=== PATIENT | male | born 1965 | race Caucasian/White ===

== ENCOUNTER 2017-05-06 20:04 | Outpatient (CLI) | payer OTHER | END 2017-05-06 20:05 | disposition EMS.NT | LOC: EMS 20:04 | PROVIDERS: ATTEND Surgery | DX: R55 Syncope and collapse (principal) ==

== ENCOUNTER 2017-05-06 21:17 | Emergency (ER) | payer OTHER ==
--- NOTE | 2017-05-06 21:36 | ED Physician Documentation ---
PD HPI SYNCOPE - Stated complaint Stated Complaint: DIZZY/PASSED OUT - Chief complaint Chief Complaint: Cardiac - History obtained from History obtained from: Patient, Family - History of Present Illness Witnessed: Witnessed Timing - onset: Today Preceding symptoms: Light headed. 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 patient and report that he was at a friends house for dinner. He had a few large beers and a steak, and started to feel a little light headed and hot so he went outside to cool off. Patient came back in and still felt like he was going to pass out so he laid down. friends checked the blood pressure which was found to be low. ems was called. patient was found to have a blood sugar of 67. patient was treated with dextrose. patient's brought him to the emergency department. Upon initial evaluation in the emergency department patient was well appearing and in no distress. Patient denies any family history of early cardiac disease, or blood clots. Review of Systems Constitutional: denies: Fever, Chills Eyes: denies: Loss of vision, Photophobia Ears: denies: Ear pain, Drainage/discharge Nose: denies: Rhinorrhea / runny nose, Congestion Throat: reports: Reviewed and negative Cardiac: denies: Chest pain / pressure, Palpitations, Calf pain GI: reports: Nausea. denies: Abdominal Pain, Vomiting : reports: Reviewed and negative Skin: denies: Rash, Lesions Musculoskeletal: denies: Neck pain, Back pain, Extremity pain Neurologic: reports: Near syncope. denies: Generalized weakness, Focal weakness , Syncope, Headache, Head injury, LOC Immunocompromised: denies: Immunocompromised PD PAST MEDICAL HISTORY - Past Medical History Cardiovascular: None Respiratory: None, Sleep apnea, CPAP use Neuro: None Endocrine/Autoimmune: None Psych: None Musculoskeletal: None - Past Surgical History Past Surgical History: No - Present Medications Home Medications: Ambulatory Orders Medication Instructions Recorded Confirmed No Known Home Medications [No 05/06/17 05/06/17 Known Home Medications] - Allergies Allergies/Adverse Reactions: Allergies Allergy/AdvReac Type Severity Reaction Status Date / Time No Known Drug Allergies Allergy Verified 05/06/17 21:23 - Social History Does the pt smoke?: No Smoking Status: Never smoker Does the pt drink ETOH?: Yes Substance Use and Type: Marijuana PD ED PE NORMAL - General General: Alert and oriented X 3, No acute distress - HEENT HEENT: Atraumatic, PERRL - Neck Neck: Supple, no meningeal sign, No JVD - Cardiac Cardiac: RRR, No murmur - Respiratory Respiratory: No respiratory distress - Abdomen Abdomen: Soft, Non tender, Non distended - Derm Derm: Normal color, Warm and dry, No rash - Extremities Extremities: No deformity, Normal ROM s pain, No edema - Neuro Neuro: Alert and oriented X 3, provider relations specialist 2-12 intact, No motor deficit, No sensory deficit, Normal speech Eye Opening: Spontaneous Motor: Obeys Commands Verbal: Oriented GCS Score: 15 Results - Vitals Vitals: Vital Signs - 24 hr 05/06/17 05/06/17 05/06/17 21:19 21:32 22:32 Temperature 36.7 C Heart Rate 85 84 78 Respiratory 18 16 18 Rate Blood Pressure 152/84 H 142/88 H 110/67 O2 Saturation 96 98 96 Oxygen O2 Source Room air - EKG (time done) 2126 Rate: Rate (enter#) (84) Rhythm: NSR [place]: Normal Intervals: Normal [place] Ischemia: Non specific changes Compare to prior EKG: Old EKG unavailable - Labs Labs: Laboratory Tests 05/06/17 05/06/17 05/06/17 21:23 21:41 21:41 WBC 10.4 RBC 4.71 Hgb 13.9 L Hct 41.1 L MCV 87.2 MCH 29.6 MCHC 33.9 RDW 12.3 Plt Count 211 MPV 7.7 Neut # 8.2 H Lymph # 1.2 L [place] # 0.9 Eos # 0.0 Baso # 0.0 Absolute Nucleated RBC 0.01 Nucleated RBC % 0.0 Sodium 139 Potassium 3.7 Chloride 98 L Carbon Dioxide 26 Anion Gap 15.0 H BUN 18 Creatinine 1.0 Estimated GFR (MDRD) 78 L Glucose 101 H POC Whole Bld Glucose 104 H Calcium 9.3 Total Bilirubin 0.9 AST 22 ALT 23 Alkaline Phosphatase 57 Troponin I B-Natriuretic Peptide Total Protein 7.3 Albumin 4.4 Globulin 2.9 Albumin/Globulin Ratio 1.5 Lipase 25 05/06/17 05/06/17 21:41 21:41 WBC RBC Hgb Hct MCV MCH MCHC RDW Plt Count MPV Neut # Lymph # [place] # Eos # Baso # Absolute Nucleated RBC Nucleated RBC % Sodium Potassium Chloride Carbon Dioxide Anion Gap BUN Creatinine Estimated GFR (MDRD) Glucose POC Whole Bld Glucose Calcium Total Bilirubin AST ALT Alkaline Phosphatase Troponin I < 0.04 B-Natriuretic Peptide 95 Total Protein Albumin Globulin Albumin/Globulin Ratio Lipase PD MEDICAL DECISION MAKING - ED course Complexity details: reviewed old records, reviewed results, re-evaluated patient , considered differential, d/w patient, d/w family ED course: Patient was seen and examined at bedside. patient's fingerstick was 104. Patient was asymptomatic. iv access was gained and labs were drawn. ekg was performed and showed normal sinus. patient was treated with a fluid bolus. Patient's diagnostics were within normal limits and sheppard lia syncope score of 0. Patient required no further inpatient work up and was stable for discharge with outpatient follow up. Departure - Departure Disposition: 01 Home, Self Care Clinical Impression: Vasovagal near syncope Condition: Good Instructions: ED Near Syncope Vasovagal Follow-Up: primary,care provider [Other] - As Needed Comments: Your diagnostics today were within normal limits. Your symptoms were likely secondary to a drop in blood pressure but there doesn't seem to be underlying cardiac disorder. You should follow up with your pmd and possibly can an echocardiogram if these symptoms return. You may return to the emergency department at any time for new, worsening or uncontrollable symptoms.
[2017-05-06] MEDS ORDERED: SODIUM CHLORIDE 0.9% 1,000 ML IV ONE (21:37)
[2017-05-06 21:55] LABS: BASOPHILS % (AUTO) 0.3 %; EOSINOPHILS % (AUTO) 0.3 %; HGB - HEMOGLOBIN 13.9 g/dL (14.0-18.0); LYMPHOCYTES # (AUTO) 1.2 10^3/uL (1.5-3.5); LYMPHOCYTES % (AUTO) 11.4 %; MEAN CORPUSCULAR HEMOGLOBIN 29.6 pg (27.0-31.0); MEAN CORPUSCULAR HGB CONC 33.9 g/dL (32.0-36.0); MEAN CORPUSCULAR VOLUME 87.2 fL (80.0-94.0); MEAN PLATELET VOLUME 7.7 fL (7.4-11.4); MONOCYTES # (AUTO) 0.9 10^3/uL (0.0-1.0); MONOCYTES % (AUTO) 8.7 %; NEUTROPHILS # (AUTO) 8.2 10^3/uL (1.5-6.6); NEUTROPHILS % (AUTO) 79.3 %; PLT - PLATELET COUNT 211 10^3/uL (130-450); RED BLOOD COUNT 4.71 10^6/uL (4.70-6.10); RED CELL DISTRIBUTION WIDTH 12.3 % (12.0-15.0); WHITE BLOOD COUNT 10.4 x10^3/uL (4.8-10.8)
[2017-05-06 22:07] LABS: ALBUMIN 4.4 g/dL (3.2-5.5); ALBUMIN/GLOBULIN RATIO 1.5 (1.0-2.2); BILIRUBIN,TOTAL 0.9 mg/dL (0.2-1.0); CALCIUM 9.3 mg/dL (8.5-10.3); TOTAL PROTEIN 7.3 g/dL (6.7-8.2)
[2017-05-06 22:33] VITALS: BP 110/67
== END 2017-05-06 23:03 | disposition home or self-care (01) ==
LOC: ED 21:17
DX: R55 Syncope and collapse (principal); G47.30 Sleep apnea, unspecified
CPT/HCPCS: 36415; 80053; 83690; 83880; 84484; 85025; 93005; 96360; 99284

== ENCOUNTER 2017-07-31 10:55 | Outpatient (CLI) | payer OTHER | END 2017-07-31 10:56 | disposition home or self-care (01) | LOC: SC 10:55 | PROVIDERS: ATTEND Internal Medicine Pulmonary Disease | DX: G47.33 Obstructive sleep apnea (adult) (pediatric) (principal) | CPT/HCPCS: 99203; 99212 ==

== ENCOUNTER 2017-09-19 19:29 | Outpatient (CLI) | payer OTHER | END 2017-09-19 19:30 | disposition home or self-care (01) | LOC: SC 19:29 | PROVIDERS: ATTEND Internal Medicine Pulmonary Disease | DX: G47.33 Obstructive sleep apnea (adult) (pediatric) (principal); G47.61 Periodic limb movement disorder | CPT/HCPCS: 95810 ==

== ENCOUNTER 2017-10-18 10:13 | Outpatient (CLI) | payer OTHER | END 2017-10-18 10:14 | disposition home or self-care (01) | LOC: SC 10:13 | PROVIDERS: ATTEND Nurse Practitioner Family | DX: G47.33 Obstructive sleep apnea (adult) (pediatric) (principal) | CPT/HCPCS: 99212; 99214 ==

== ENCOUNTER 2018-01-16 15:13 | Outpatient (CLI) | payer OTHER | END 2018-01-16 15:14 | disposition home or self-care (01) | LOC: SC 15:13 | PROVIDERS: ATTEND Nurse Practitioner Family | DX: G47.33 Obstructive sleep apnea (adult) (pediatric) (principal) | CPT/HCPCS: 99212; 99214 ==

== ENCOUNTER 2018-04-17 08:43 | Outpatient (CLI) | payer OTHER | END 2018-04-17 08:44 | disposition home or self-care (01) | LOC: SC 08:43 | PROVIDERS: ATTEND Nurse Practitioner Family | DX: G47.33 Obstructive sleep apnea (adult) (pediatric) (principal); R03.0 Elevated blood-pressure reading, without diagnosis of hypertension | CPT/HCPCS: 99212; 99214 ==

== ENCOUNTER 2018-10-31 09:11 | Outpatient (CLI) | payer OTHER ==
[2018-10-31 10:34] VITALS: BP 144/84
--- NOTE | 2018-10-31 10:34 | SLEEP CARE CONSULTATION ---
Information from patient questionnaire entered by Deirdre Gross. I have reviewed and concur with the information entered by Deirdre Gross. This document represents the service I personally performed and the decisions made by me, Camelia Duarte, RN, MSN, MANAGER OF REGULATORY AFFAIRS. History of Present Illness Previous diagnosis: Mild (He would like to change to a new company that he can order supplies online. ) AHI: 12 Reason for CPAP/BiPAP follow up: six month Equipment type: CPAP Equipment obtained from: [employer] Mask style: Nasal pillows (he does not like the inability to adjust as wears down) Mask brand: Resmed Backup mask available: Yes Last cushion change: 1 year ago as supply ordering system not user friendly for working people. CPAP Compliance Data - Data Reviewed with Patient Average duration of nightly device use: 5.85 Compliance rate %: 66.7 (180 days ) Current pressure setting (cmH2O): 7-12 Humidity settin Heated hose settin Average residual AHI: 1.2 Average large leak: 31 seconds Subjective Missed days of use due to: reports: travel (He travels for work and CPAP size not convenient. He has tried making unit smaller by removing humidifier but dryness symptoms are uncomfortable even with saline nasal spray prep. ) Patient concerns: denies: aerophagia, mask discomfort, air blowing in eyes, mask leak noise, condensation in mask/hose, nasal congestion, dry mouth, nose, throat, epistaxis Observed to snore while using device: No Current pressure setting perceived as: comfortable On therapy, patient: reports: sleeping better, awakening more refreshed, being more awake and alert during the day, more rested overall. denies: drowsiness while driving Initial Agness Sleepiness Scale score: 6 Current Agness Sleepiness Scale score: 1 Allergies and Home Medications Known drug allergies: No Home medication list reviewed: Yes Allergy and home medication list: Amlodipine Besylate 2.5mg tab one daily ATorvastatin unknown daily Review of Systems Review of systems same as previous: No Cardiovascular: reports: high blood pressure Ear/Nose/Throat: reports: dry mouth/throat Musculoskeletal: reports: back pain (occasional if overworks), muscle pain or cramping Physical Exam Blood Pressure: 144/84 Cuff size: regular Heart Rate: 71 O2 Saturation: 97 Height: 5 ft 9.75 in Weight (kg): 91.716 kg Body Mass Index: 29.2 BMI Classification: Overweight Impression and Plan 1. Obstructive Sleep Apnea-Hypopnea Syndrome, mild, with fair treatment compliance and good apnea control. On CPAP therapy, there is improved sleep quality and continues to feel more rested overall. For his supplies concerns, I advised him that he can transfer when CPAP paid for. In addition, he needs to bring up his compliance to a minimum of 70%. His compliance fell due not using with travel to bulk of home CPAP in carry on and he is not comfortable using the CPAP without the reservoir. Thus I discussed the option of purchasing a travel CPAP that has download capacity or take his home CPAP in travel and consider other options of baggage carryon for convenience. He was also advised to research which travel PAPS have an inline humidifier adaptor for oral dryness comfort. The travel PAP also requires a prescription if he chooses to pursue and he can contact me. Patient Patient's apnea severity and rationale for treatment to reduce apnea, improve sleep quality and reduce cardiovascular and cerebro vascular events was reviewed. I also reviewed the benefit of consistent device use of CPAP for hypertension and he is to advised to use CPAP with all sleep for maximum benefit of treatment. Since his apnea is primarily in supine position, he is advised to avoid supine sleep with pillow positioning when unable to use CPAP. . Continue auto CPAP pressure at 7-12 cm H2O. Research travel CPAPs Improve compliance for transfer option. Notify me if snoring with the mask or feeling that the pressure is too much or too little. Attempt to lose weight Return for follow-up in 2 months, or sooner if concerns arise. I spent 100% of this 35 minute visit face to face with the patient with greater than 50% of this was spent time counseling the patient and coordination of care. I spent 100% of this [] minute visit face to face with the patient with greater than 50% of this was spent time counseling the patient and coordination of care.
== END 2018-10-31 09:12 | disposition home or self-care (01) ==
LOC: SC 09:11
PROVIDERS: ATTEND Nurse Practitioner Family
DX: G47.33 Obstructive sleep apnea (adult) (pediatric) (principal)
CPT/HCPCS: 99212; 99214

== ENCOUNTER 2020-11-05 15:53 | Emergency (ER) | payer OTHER ==
[2020-11-05 16:23] VITALS: BP 140/97
[2020-11-05] MEDS ORDERED: BUFFERED LIDOCAINE 10 ML SYRINGE SUBQ STA (16:28)
[2020-11-05] MEDS ORDERED: TETANUS/DIPHTHERIA/PERTUSSIS 0.5 ML SYRINGE IM ONE (16:28)
--- NOTE | 2020-11-05 17:50 | ED Physician Documentation ---
PD HPI UPPER EXT INJURY - Stated complaint Stated Complaint: BILAT HAND LACS - Chief complaint Chief Complaint: Laceration - History obtained from History obtained from: Patient - History of Present Illness Location: Both, Finger (little fingers both sides with injuries. right with small 1/2 cm partial thickness avulsion. LEft with flap lac that goes full thickness skin in its center, so viable, without FB. Active bleeding noted.) Type of injury: Laceration (he tried to catch falling jar and it broke in his hands, causing lacs to little fingers.) Where injury occurred: Home Timing - onset: Today Timing - details: Abrupt onset, Still present Worsened by: Palpating Associated symptoms: No: Weakness, Numbness Similar symptoms before: Has not had sx before Review of Systems Constitutional: denies: Fever, Chills Nose: denies: Rhinorrhea / runny nose, Congestion Throat: denies: Sore throat Respiratory: denies: Cough Skin: reports: Laceration (s) Neurologic: denies: Focal weakness, Numbness PD PAST MEDICAL HISTORY - Past Medical History Cardiovascular: None Respiratory: None, Sleep apnea, CPAP use Endocrine/Autoimmune: None Psych: None Musculoskeletal: None - Past Surgical History Past Surgical History: No - Present Medications Home Medications: Ambulatory Orders Medication Instructions Recorded Confirmed No Known Home Medications 05/06/17 05/06/17 - Allergies Allergies/Adverse Reactions: Allergies Allergy/AdvReac Type Severity Reaction Status Date / Time No Known Drug Allergies Allergy Verified 11/05/20 16:29 - Social History Does the pt smoke?: No Smoking Status: Never smoker Does the pt drink ETOH?: Yes PD ED PE NORMAL - Vitals Vital signs reviewed: Yes - General General: Alert and oriented X 3, No acute distress, Well developed/nourished - Derm Derm: Normal color, Warm and dry - Extremities Extremities: Other (right little finger proximal phalanx with 1/2 cm partial thickness avulsion without FB. Left little finger with ulnar palmar side flap lac full thickness, not to deep structures. No FB. Active mild bleeding. Flexion and ext are good. Normal sensation distal. ) - Neuro Neuro: No motor deficit, No sensory deficit Results - Vitals Vitals: Oxygen O2 Source Room air Procedures - Laceration (location) left little finger Length in cm: 1.2 Wound type: Flap, Clean Neurovascular status: Sensory intact, Motor intact Tendon involvement: Tendon intact Anesthesia: Lidocaine 1% Wound preparation: Irrigated copiously NS, Wound explored, To the base Skin layer closure: Nylon, Running, Size #-0 - enter number (5) Other: Patient tolerated well, No complications, Neurovascular intact, Dressing applied, Tetanus booster given PD MEDICAL DECISION MAKING - ED course Complexity details: considered differential (small avulsion right finger, no sutures. Left finger with lac flap that is bleeding and needs suturing. ), d/w patient Departure - Departure Disposition: 01 Home, Self Care Clinical Impression: Laceration of little finger Qualifiers: Encounter type: initial encounter Damage to nail status: without damage Foreign body presence: without foreign body Laterality: unspecified laterality Qualified Code(s): S61.218A - Laceration without foreign body of other finger without damage to nail, initial encounter Condition: Stable Record reviewed to determine appropriate education?: Yes Instructions: ED Laceration Hand Follow-Up: JEANIE COSTA DO [Primary Care Provider] - Comments: It is okay to wash and shower. Clean off the wound twice a day with soap and water, or peroxide and water. Apply some antibiotic ointment to it to keep it moist. Also to watch for signs of infection such as purulence, redness or increasing pain. Return to your primary care or the ER at the specified time for suture removal. Suture removal 10 to 14 days. Gentle use of the finger initiated while its healing. The avulsion on the other hand will be treated with cleaning and ointment and bandaging and that should healing okay. Tylenol ibuprofen as needed for pains. Discharge Date/Time: 11/05/20 19:03
== END 2020-11-05 19:03 | disposition home or self-care (01) ==
LOC: ED 15:53
DX: S61.217A Laceration without foreign body of left little finger without damage to nail, initial encounter (principal); S61.216A Laceration without foreign body of right little finger without damage to nail, initial encounter; W25.XXXA Contact with sharp glass, initial encounter; Y93.89 Activity, other specified; Y92.009 Unspecified place in unspecified non-institutional (private) residence as the place of occurrence of the external cause; Z23 Encounter for immunization
CPT/HCPCS: 12001; 90471; 99282; 99283

== ENCOUNTER 2023-05-18 22:33 | Emergency (ER) | payer OTHER ==
--- NOTE | 2023-05-18 22:50 | ED Physician Documentation ---
History of Present Illness - Stated complaint Stated Complaint: IRREGULAR HR - History obtained from History obtained from: Patient, Family () - Additonal information Additional information: 58yM with pmh htn p/w heart palpitations for the past couple days. denies cp, soa, n/v/d urinary sx fever cough or uri symptoms, urinary sx, leg swelling or rash. Review of Systems Constitutional: denies: Fever, Chills Eyes: denies: Loss of vision Ears: denies: Loss of hearing Nose: denies: Rhinorrhea / runny nose Throat: denies: Dental pain / toothache, Sore throat Cardiac: reports: Palpitations. denies: Chest pain / pressure Respiratory: denies: Dyspnea GI: denies: Abdominal Pain, Nausea, Vomiting, Diarrhea : denies: Dysuria Skin: denies: Rash Musculoskeletal: denies: Neck pain, Back pain Neurologic: denies: Generalized weakness, LOC PD PAST MEDICAL HISTORY - Past Medical History Cardiovascular: None Respiratory: None, Sleep apnea, CPAP use Endocrine/Autoimmune: None Psych: None Musculoskeletal: None - Past Surgical History Past Surgical History: No - Present Medications Home Medications: Ambulatory Orders Medication Instructions Recorded Confirmed Losartan [Cozaar] 50 mg PO DAILY 05/18/23 Tamsulosin [Flomax] 0.4 mg PO DAILY 05/18/23 gemfibroziL [Lopid] 600 mg PO DAILY 05/18/23 - Allergies Allergies/Adverse Reactions: Allergies Allergy/AdvReac Type Severity Reaction Status Date / Time No Known Drug Allergies Allergy Verified 05/18/23 22:54 - Social History Does the pt smoke?: No Smoking Status: Never smoker Does the pt drink ETOH?: Yes PD ED PE NORMAL - Vitals Vital signs reviewed: Yes - General General: Alert and oriented X 3, No acute distress, Well developed/nourished - HEENT HEENT: Atraumatic, PERRL, EOMI, Moist mucous membranes, Pharynx benign - Neck Neck: Supple, no meningeal sign - Cardiac Cardiac: RRR - Respiratory Respiratory: No respiratory distress, Clear bilaterally - Abdomen Abdomen: Non tender, Non distended - Derm Derm: Normal color, Warm and dry Results - Vitals Vitals: Vital Signs - 24 hr 05/18/23 22:36 Temperature 36.6 C Heart Rate 85 Respiratory 17 Rate Blood Pressure 162/93 H O2 Saturation 98 Oxygen O2 Source Room air - EKG (time done) 2240 EKG releavant findings:: EKG personally interpreted by author of this note. Relevant findings are: Rate: Rate (enter#) (81) Rhythm: NSR [place]: Normal Intervals: Normal [place] QRS: LVH Ischemia: Normal ST segments Other comments: Other comments (multiple pvcs) - Labs Labs: Laboratory Tests 05/18/23 05/18/23 05/18/23 23:01 23:01 23:01 WBC 6.3 RBC 5.06 Hgb 14.5 Hct 43.8 MCV 86.6 MCH 28.7 MCHC 33.1 RDW 12.6 Plt Count 254 MPV 10.5 Neut # (Auto) 2.9 Lymph # (Auto) 2.1 [place] # (Auto) 0.9 Eos # (Auto) 0.2 Baso # (Auto) 0.1 Absolute Nucleated RBC 0.00 Nucleated RBC % 0.0 Sodium 140 Potassium 3.9 Chloride 103 Carbon Dioxide 28 Anion Gap 9.0 BUN 21 H Creatinine 1.1 Estimated GFR (MDRD) 69 L Glucose 116 H Calcium 10.0 Magnesium 1.8 Total Bilirubin 0.5 AST 19 ALT 29 Alkaline Phosphatase 95 Total Protein 7.8 Albumin 4.8 Globulin 3.0 Albumin/Globulin Ratio 1.6 Lipase 63 PD Medical Decision Making - ED course ED course: 58yM presents with heart palpitations, found to have pvcs on cardiac monitoring and ekg. also with o2 sat in mid 90s but patient states this has been the case for years. he is unsure of cause. patient otherwise well appearing. cbc, abdominal panel unremarkable. advised outpatient f/u with pcp for referral to cardiology. return precautions given. Departure - Departure Disposition: Home, Self Care Clinical Impression: PVC's (premature ventricular contractions), Palpitations Condition: Stable Instructions: Premature Ventricular Contract About Comments: You were seen in the emergency department for evaluation of heart beat irregularity and found to have PVCs. Your labwork including anemia tests, organ function testing and electrolytes was normal. Your EKG looked okay except for the PVCs. Please follow-up with your primary care provider for referral to cardiology and return to the emergency department if you have any new or worsening symptoms or other concerns.
[2023-05-18 23:08] LABS: BASOPHILS # (AUTO) 0.1 10^3/uL (0.0-0.1); BASOPHILS % (AUTO) 1.3 %; EOSINOPHILS # (AUTO) 0.2 10^3/uL (0.0-0.7); EOSINOPHILS % (AUTO) 3.3 %; HCT - HEMATOCRIT 43.8 % (42.0-52.0); HGB - HEMOGLOBIN 14.5 g/dL (14.0-18.0); LYMPHOCYTES # (AUTO) 2.1 10^3/uL (1.5-3.5); LYMPHOCYTES % (AUTO) 33.8 %; MEAN CORPUSCULAR HEMOGLOBIN 28.7 pg (27.0-31.0); MEAN CORPUSCULAR HGB CONC 33.1 g/dL (32.0-36.0); MEAN CORPUSCULAR VOLUME 86.6 fL (80.0-94.0); MEAN PLATELET VOLUME 10.5 fL (7.4-11.4); MONOCYTES # (AUTO) 0.9 10^3/uL (0.0-1.0); MONOCYTES % (AUTO) 14.5 %; NEUTROPHILS # (AUTO) 2.9 10^3/uL (1.5-6.6); NEUTROPHILS % (AUTO) 46.8 %; PLT - PLATELET COUNT 254 10^3/uL (130-450); RED BLOOD COUNT 5.06 10^6/uL (4.70-6.10); RED CELL DISTRIBUTION WIDTH 12.6 % (12.0-15.0); WHITE BLOOD COUNT 6.3 x10^3/uL (4.8-10.8)
[2023-05-18 23:23] LABS: ALBUMIN 4.8 g/dL (3.2-5.5); ALBUMIN/GLOBULIN RATIO 1.6 (1.0-2.2); BILIRUBIN,TOTAL 0.5 mg/dL (0.2-1.0); CREATININE 1.1 mg/dL (0.6-1.3); POTASSIUM 3.9 mmol/L (3.5-4.5); TOTAL PROTEIN 7.8 g/dL (6.4-8.9)
--- NOTE | 2023-05-18 23:56 | XRAY Report ---
PROCEDURE: Chest 2V INDICATIONS: palpitations TECHNIQUE: 2 views of the chest were acquired. COMPARISON: None. FINDINGS: Surgical changes and devices: None. Lungs and pleura: No pleural effusions or pneumothorax. Lungs are clear. Mediastinum: Mediastinal contours appear normal. Heart size is normal. Bones and chest wall: No suspicious bony lesions. Overlying soft tissues appear unremarkable. IMPRESSION: No acute cardiopulmonary process. No focal consolidation. Reviewed by: Rickie Grey MD on 05/18/2023 11:55 PM [facility] Approved by: Rickie Grey MD on 05/18/2023 11:55 PM [facility] Station ID: [id number]
[2023-05-19 00:42] VITALS: BP 143/81; O2SAT 94
== END 2023-05-19 00:43 | disposition home or self-care (01) ==
LOC: ED 22:33
DX: I49.3 Ventricular premature depolarization (principal); R00.2 Palpitations; I10 Essential (primary) hypertension; G47.30 Sleep apnea, unspecified
CPT/HCPCS: 36415; 80053; 83690; 83735; 85025; 93005; 99283; 99284